=== PATIENT | female | born 1935 | race Caucasian/White ===

== ENCOUNTER 2022-07-04 16:29 | Outpatient (CLI) | payer MEDICARE ==
--- NOTE | 2022-07-04 20:29 | Ultrasound Report ---
PROCEDURE: Duplex Ext Veins Left INDICATIONS: SWELLING LEFT LOWER LEG TECHNIQUE: Real-time imaging, as well as color and pulse Doppler interrogation, were performed of the lower extr emity deep veins from the inguinal ligament to the popliteal fossa. COMPARISON: None. FINDINGS: The deep veins are normally compressible, and free of intraluminal thrombus. Color and pu lse Doppler demonstrate normal phasic intraluminal flow. There is normal augmentation response to di stal compression maneuver. Evaluation in the area of palpable abnormality laterally in the left calf demonstrates no discrete fiore bjacent fluid collection or mass. IMPRESSION: 1. No evidence of deep venous thrombosis in the left lower extremity. Reviewed by: Eligio Grewal MD on 07/04/2022 8:28 PM PST Approved by: Eligio Grewal MD on 07/04/2022 8:28 PM PST Station ID: [id number]
== END 2022-07-04 16:30 | disposition home or self-care (01) ==
LOC: DI 16:29
PROVIDERS: ATTEND Nurse Practitioner Gerontology
DX: R22.42 Localized swelling, mass and lump, left lower limb (principal); M79.662 Pain in left lower leg